=== PATIENT | female | born 1960 | race Caucasian/White ===

== ENCOUNTER 2016-10-31 18:33 | Observation (INO) | payer BC ==
[~2016-10-31] VITALS: Ht 172.7 cm; Wt 71.1 kg
[~2016-10-31 18:33] MED LIST: FLOMAX0.4 MG PO; PERCOCET 5/31 TABLET PO; PROMETHAZINE HC25 M1 PO; SIMVASTATIN20 MG PO
[2016-10-31 19:23] LABS: ADD MIUA? YES; BILIRUBIN NEGATIVE; BLOOD LARGE; COLOR YELLOW ((YELLOW)); GLUCOSE (STRIP) NEGATIVE; KETONES NEGATIVE; LEUKOCYTES LARGE; NITRITE NEGATIVE; PROTEIN (STRIP) 100; SPECIFIC GRAVITY 1.015 (1.000-1.030); UROBILINOGEN 0.2 MG/DL (0.2-1.0)
[2016-10-31 19:31] LABS: BACTERIA RARE /HPF; EPITHELIAL CELLS RARE /HPF; HYALINE CASTS 0-5 /LPF; MUCUS TRACE /LPF; RED BLOOD CELLS TNTC /HPF (0-5); UCUL ADDED? YES; WHITE BLOOD CELLS TNTC /HPF (0-5)
[2016-10-31 19:47] LABS: HEMATOCRIT 40.9 % (36.0-46.0); MCH 29.2 PG (29.0-34.0); MCHC 33.7 G/DL (30.0-36.0); MCV 86.7 FL (83-99); MEAN PLAT.VOLUME 9.6 uM^3 (9.5-12.4); PLATELET COUNT 203 K/uL (156-360); RBC DIS.WIDTH-CV 11.8 % (11.8-14.6); RBC DIS.WIDTH-SD 37.7 % (39-53); RED BLOOD COUNT 4.72 M/uL (3.80-5.20); WHITE BLOOD COUNT 10.8 K/uL (4.1-10.2)
[2016-10-31 19:57] LABS: CHLORIDE 104 mEq/L (99-109); POTASSIUM 4.1 mEq/L (3.7-5.4); SODIUM 139 mEq/L (136-147)
[2016-10-31 19:59] LABS: GLUCOSE 121 mg/dL (70-99)
[2016-10-31 20:00] LABS: ANION GAP 10 MEQ/L (2-14)
[2016-10-31 20:01] LABS: TOTAL BILIRUBIN 1.1 mg/dL (0.0-1.0)
[2016-10-31 20:03] LABS: ALKALINE PHOSPHATASE 87 IU/L (3-129); GFR ESTIMATE (CALCULATED) > 59 mL/min/
[2016-10-31 20:04] LABS: UREA NITROGEN (BUN) 19 mg/dL (9-23)
[2016-10-31 20:11] LABS: QUANTITATIVE HCG < 4.0 MIU/ML
[2016-10-31] MEDS ORDERED: FLOMAX0.4 MG PO (23:24)
[2016-10-31] MEDS ORDERED: ZOFRAN ODT4 MG PO (23:24)
[2016-10-31] MEDS ORDERED: NITROFURANTOIN100 MG PO (23:24)
[2016-10-31] MEDS ORDERED: PHENERGAN25 MG PR (23:24)
[2016-11-01] MEDS ORDERED: RANITIDINE HCL150 MG PO (01:01)
[2016-11-01] MEDS ORDERED: LOPRESSOR25 MG PO (01:01)
[2016-11-01] MEDS ORDERED: METOPROLOL SUCC25 MG PO (01:01)
[2016-11-01] MEDS ORDERED: IBUPROFEN800 MG PO (01:02)
[2016-11-01] MEDS ORDERED: CLONAZEPAM0.5 MG PO (01:02)
[2016-11-01 02:12] VITALS: BP 115/58
[2016-11-01 06:17] LABS: EOSINOPHIL (%) 0 % (0-5); HEMATOCRIT 37.5 % (36.0-46.0); IMMATURE GRANULOCYTE (%) 0.5 % (0.0-0.7); INSTRUMENT ABS NEUTROPHIL CT 6.2 K/uL; LYMPHOCYTE COUNT 0.6 K/uL (1.0-2.8); MCHC 33.1 G/DL (30.0-36.0); MCV 87.8 FL (83-99); MEAN PLAT.VOLUME 9.5 uM^3 (9.5-12.4); MONOCYTE (%) 8.2 % (3-12); MONOCYTE COUNT 0.6 K/uL (0-0.8); NEUTROPHIL (%) 83.3 % (45-76); NEUTROPHIL COUNT 6.2 K/uL (1.8-6.4); PLATELET COUNT 164 K/uL (156-360); RBC DIS.WIDTH-CV 11.9 % (11.8-14.6); RBC DIS.WIDTH-SD 38.4 % (39-53); RED BLOOD COUNT 4.27 M/uL (3.80-5.20); WHITE BLOOD COUNT 7.5 K/uL (4.1-10.2)
[2016-11-01 06:38] LABS: ANION GAP 6 MEQ/L (2-14); CHLORIDE 107 MEQ/L (99-109); GFR ESTIMATE (CALCULATED) > 59 mL/min/; GLUCOSE 116 mg/dL (70-99); POTASSIUM 4.4 MEQ/L (3.7-5.4); SAMPLE HEMOLYSIS CHECK 0; SAMPLE ICTERIC CHECK 0; SAMPLE LIPEMIA CHECK 0; SODIUM 138 MEQ/L (136-147); UREA NITROGEN (BUN) 18 mg/dL (9-23)
[2016-11-01 12:00] VITALS: BP 119/66
[2016-11-01 20:00] VITALS: BP 110/59
[2016-11-02] VITALS: BP 102/56
[2016-11-02 04:02] VITALS: BP 118/68
[2016-11-02] MEDS ORDERED: COLACE100 MG PO (09:29)
[2016-11-02] MEDS ORDERED: PHENERGAN25 MG PR (09:29)
[2016-11-02] MEDS ORDERED: MIRALAX17 GM PO (09:30)
[2016-11-02] MEDS ORDERED: MUCINEX FAST-M1 EAC2 PO (09:32)
[2016-11-02] MEDS ORDERED: LEVAQUIN750 MG PO (09:36)
== END 2016-11-02 10:59 | disposition home or self-care (01) ==
LOC: EME 18:33 → EDOF 11-01 01:04 → 5WEST 11-01 01:04 → EDOF 11-01 01:04 → 5WEST 11-01 01:58
PROVIDERS: Internal Medicine
DX: N13.2 Hydronephrosis with renal and ureteral calculous obstruction (principal); I10 Essential (primary) hypertension; E78.00 Pure hypercholesterolemia, unspecified; I34.1 Nonrheumatic mitral (valve) prolapse; K21.9 Gastro-esophageal reflux disease without esophagitis
CPT/HCPCS: 74176; 80048; 80053; 81003; 82140; 84702; 85025; 85027; 87086; 99281; 99285; C1876; G0378; J1100; J1885; J1956; J2250; J2270; J2405; J2765; J3010; J7030; Q0169; S0028